=== PATIENT | male | born 2000 | race African-American/Black ===

== ENCOUNTER → 2019-06-08 | Outpatient (CLI) | payer OTHER ==
--- NOTE | 2019-06-08 10:07 | Diagnostic Imaging Report ---
INDICATION: Injury to the right knee playing football. TIME OF EXAM: 9:38 AM Three views of right knee were obtained. FINDINGS: Alignment is normal. The joint spaces are well maintained. The articular surfaces are smooth. No fractures are seen. There is no dislocation or effusion. IMPRESSION: No acute bony abnormality is detected. Dictated by: Dictated on workstation # [id number]
== END ==
LOC: RAD FS 09:15
PROVIDERS: ATTEND Nurse Practitioner
DX: S89.91XA Unspecified injury of right lower leg, initial encounter (principal); Y93.61 Activity, american tackle football
CPT/HCPCS: 73562